=== PATIENT | male | born 1965 | race Caucasian/White ===

== ENCOUNTER 2022-02-13 11:49 | Emergency (ER) | payer OTHER ==
[~2022-02-13] VITALS: Ht 167.6 cm; Wt 91.9 kg
[2022-02-13 12:07] VITALS: BP 133/78
[2022-02-13] MEDS ORDERED: KETOROLAC 30 MG/ML VIAL IM ONE (13:40)
--- NOTE | 2022-02-13 13:42 | NUR ---
pt taken to radiology via w/c.
--- NOTE | 2022-02-13 14:05 | NUR ---
56Y MALE BIB SELF DUE TO FINGER LACERATION ON L MIDDLE FINGER S/P METAL CRATE AT WORK. PATIENT STATES 04/23, THROBBING/CONSTANT, NON-RADIATING PAIN. BLEEDING CONTROLLED AND IRRIGATED BY PATIENT PRIOR TO ARRIVAL. DENIES MEDICATIONS PRIOR TO ARRIVAL. POSSIBLE LAST TDAP 2020. PT IN CHAIR B AT THIS TIME. PMH: DENIES NKA
[2022-02-13] MEDS ORDERED: BACITRACIN OINT 500 UNITS/GM PKT TP ONE (14:10)
[2022-02-13] MEDS ORDERED: LIDOCAINE MPF 1% 10 MG/ML VIAL INJ ONE (14:10)
--- NOTE | 2022-02-13 14:11 | NUR ---
PATIENT AMBULATED FROM [facility] TO BED 12.
--- NOTE | 2022-02-13 14:32 | NUR ---
3RD DIGIT OF LEFT HAND IRRIGATED WITH IODINE / NS. TOLERATED WELL.
[2022-02-13] MEDS ORDERED: CEPH-588 PO (15:07)
[2022-02-13] MEDS ORDERED: NAPR-54 PO (15:07)
[2022-02-13 15:35] VITALS: BP 141/88
--- NOTE | 2022-02-13 15:37 | NUR ---
Patient discharged with v/s stable. Written and verbal after care instructions given and explained. Patient alert, oriented and verbalized understanding of instructions. Ambulatory with steady gait. All questions addressed prior to discharge. ID band removed. Patient advised to follow up with PMD. Rx of Naproxen, Keflex given. Patient educated on indication of medication including possible reaction and side effects. Opportunity to ask questions provided and answered.
== END 2022-02-13 15:37 | disposition home or self-care (01) ==
LOC: MED 11:49
DX: S62.633A Displaced fracture of distal phalanx of left middle finger, initial encounter for closed fracture (principal); Z79.899 Other long term (current) drug therapy; W22.8XXA Striking against or struck by other objects, initial encounter; Y93.89 Activity, other specified; Y92.89 Other specified places as the place of occurrence of the external cause; Y99.0 Civilian activity done for income or pay
CPT/HCPCS: 12002; 73140; 96372; 99283; J1885; J2001

== ENCOUNTER 2022-02-15 14:17 | Emergency (ER) | payer OTHER ==
[~2022-02-15] VITALS: Ht 167.6 cm; Wt 92.1 kg
[~2022-02-15 14:17] MED LIST: CEPH-588 PO; NAPR-54 PO
[2022-02-15 14:29] VITALS: BP 174/96
--- NOTE | 2022-02-15 14:34 | NUR ---
PT AMB TO BED2.
--- NOTE | 2022-02-15 14:38 | NUR ---
56 Y/O MALE BIB SELF HERE FOR WOUND CHECK, STATED THEY WERE HERE 2 DAYS AGO FOR WOUND IN THE LEFT MIDDLE FINGER, 5/10 PAIN NOTED IN AREA. MIDDLE FINGER IS WRAPPED IN GAUZE DRESSING, NO OVERT BLEEDING NOTED. BP 174/96 AT TRIAGE, BP NOW 147/87. PMH: DENIES NKA
--- NOTE | 2022-02-15 14:42 | NUR ---
RODOLFO PRUETT AT BEDSIDE FOR ASSESSMENT
--- NOTE | 2022-02-15 15:04 | NUR ---
PT'S FINGER WAS PLACED IN A FINGER SPLINT AND WAS WRAPPED WITH NONADHERENT DRESSING AND GAUZE ROLL
--- NOTE | 2022-02-15 15:13 | NUR ---
Patient discharged with v/s stable. Written and verbal after care instructions ABOUT WOUND CARE given and explained. Patient verbalized understanding. Ambulatory with steady gait. All questions addressed prior to discharge. Advised to follow up with PMD.
== END 2022-02-15 15:13 | disposition home or self-care (01) ==
LOC: MED 14:17
DX: S61.213A Laceration without foreign body of left middle finger without damage to nail, initial encounter (principal); R03.0 Elevated blood-pressure reading, without diagnosis of hypertension; Z79.899 Other long term (current) drug therapy; X58.XXXA Exposure to other specified factors, initial encounter; Y93.89 Activity, other specified; Y92.89 Other specified places as the place of occurrence of the external cause; Y99.8 Other external cause status
CPT/HCPCS: 99283